=== PATIENT | male | born 1990 | race Asian ===

== ENCOUNTER 2024-10-22 19:04 | Emergency (ER) | payer BC ==
[2024-10-22] MEDS ORDERED: Ketorolac Tromethamine 30 MG (1 mL) VIAL ONE (19:57)
[2024-10-22] MEDS ORDERED: Acetaminophen 500 MG TAB ONE (20:33)
[2024-10-22] MEDS ORDERED: Orphenadrine Citrate 100 MG ER.TAB ONE (20:34)
== END 2024-10-22 22:12 | disposition home or self-care (01) ==
LOC: ERS 19:04
DX: S29.011A Strain of muscle and tendon of front wall of thorax, initial encounter (principal); W19.XXXA Unspecified fall, initial encounter; Y93.69 Activity, other involving other sports and athletics played as a team or group
CPT/HCPCS: 99283; J1885